=== PATIENT | female | born 1990 | race Caucasian/White ===

== ENCOUNTER 2024-02-02 17:17 | Emergency (ER) | payer SELFPAY ==
[~2024-02-02] VITALS: Ht 160 cm; Wt 69.0 kg
[2024-02-02 17:32] VITALS: O2SAT 100
[2024-02-02 17:41] VITALS: BP 149/94; PULSE 75; RESP 18; TEMP 98.6; O2SAT 100
[2024-02-02] MEDS ORDERED: LIDOCAINE HCL/PF 1% 10 MG/ML 5ML VIAL INFIL ONE (20:30)
[2024-02-02] MEDS ORDERED: TETANUS, DIPHTHERIA, PERTUSSIS VAC/PF 0.5ML (>10YR OLD) IM ONE (20:30)
[2024-02-02] MEDS: TETANUS, DIPHTHERIA, PERTUSSIS VAC/PF 0.5ML (>10YR OLD) IM ONE (22:21)
== END 2024-02-02 22:24 | disposition home or self-care (01) ==
LOC: ER 17:17
DX: S61.210A Laceration without foreign body of right index finger without damage to nail, initial encounter (principal); W26.0XXA Contact with knife, initial encounter; Y93.89 Activity, other specified; Y92.89 Other specified places as the place of occurrence of the external cause; Y99.8 Other external cause status
CPT/HCPCS: 90715; 12001; 90471; 99283; Z7610 ×2